=== PATIENT | male | born 1980 | race Caucasian/White ===

== ENCOUNTER 2017-10-17 08:16 | Inpatient (IN) | payer OTHER ==
[~2017-10-17] VITALS: Ht 180.3 cm; Wt 87.5 kg
[2017-10-17 08:24] VITALS: BP 136/100; PULSE 74; RESP 22; TEMP 98.4; O2SAT 99
[2017-10-17 08:29] VITALS: BP_SYST 137; BP_DIAS 64; BP_DIAS 84; PULSE 69; PULSE 74; RESP 18; RESP 20; TEMP 98.4; O2SAT 99
[2017-10-17] MEDS ORDERED: MORPHINE SULFATE 4 MG/ML INJ IV PUSH ONE (08:30)
[2017-10-17] MEDS ORDERED: KETOROLAC TROMETHAMINE 30 MG/ML (IVP) VIAL IVP ONE (08:30)
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
[2017-10-17 10:44] LABS: AUTOMATED NEUTROPHIL # 7.1 TH/MM3 (1.8-7.7); BASOPHIL % 0.3 % (0.0-2.0); EOSINOPHIL # 0.1 TH/MM3 (0-0.4); HEMATOCRIT 39.3 % (39.0-51.0); HEMOGLOBIN 13.6 GM/DL (13.0-17.0); LYMPH % 17.6 % (9.0-44.0); LYMPHOCYTE # 1.7 TH/MM3 (1.0-4.8); MEAN CELL VOLUME 88.7 FL (80.0-100.0); MEAN CORPUSCULAR HEMOGLOBIN 30.7 PG (27.0-34.0); MEAN CORPUSCULAR HGB CONC 34.7 % (32.0-36.0); MEAN PLATELET VOLUME 8.9 FL (7.0-11.0); MONOCYTE # 0.7 TH/MM3 (0-0.9); NEUT % 74.1 % (16.0-70.0); PLATELET COUNT 238 TH/MM3 (150-450); RED BLOOD COUNT 4.43 MIL/MM3 (4.50-5.90); RED CELL DISTRIBUTION WIDTH 13.7 % (11.6-17.2); WHITE BLOOD COUNT 9.6 TH/MM3 (4.0-11.0)
[2017-10-17] MEDS ORDERED: diphenhydrAMINE HCL 25 MG CAP PO PRN (10:45)
[2017-10-17] MEDS ORDERED: SODIUM CHLORIDE 0.9% FLUSH 10 ML FLUSH IV FLUSH PRN (10:45)
[2017-10-17] MEDS ORDERED: diphenhydrAMINE HCL 50 MG/ML VIAL IV PUSH PRN (10:45)
[2017-10-17] MEDS ORDERED: NALOXONE HCL 0.4 MG/ML AMP IV PUSH PRN (10:45)
[2017-10-17 10:55] LABS: PROTHROMBIN TIME - PATIENT 10.4 SEC (9.8-11.6)
[2017-10-17 11:03] LABS: BICARBONATE 29.9 MEQ/L (21.0-32.0); CALCIUM 8.3 MG/DL (8.5-10.1); CREATININE 0.7 MG/DL (0.60-1.30)
[2017-10-17] MEDS ORDERED: MORPHINE SULFATE 4 MG/ML INJ IV PUSH PRN (11:45)
[2017-10-17] MEDS ORDERED: ONDANSETRON ODT 4 MG TAB PO PRN (11:45)
[2017-10-17] MEDS: D5-1/2 NS + KCL 20 MEQ INJ 1,000 ML IV SCH ×2 (12:28→22:21)
[2017-10-17 12:29] VITALS: BP 126/83; PULSE 64; RESP 16; O2SAT 97
[2017-10-17] MEDS: ACETAMINOPHEN/HYDROcodone 325 MG/5 MG TAB PO PRN ×2 (13:20→19:49)
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
[2017-10-17 17:14] VITALS: BP 116/72
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
[2017-10-17] MEDS: SODIUM CHLORIDE 0.9% FLUSH 10 ML FLUSH IV FLUSH SCH (19:21)
[2017-10-17] MEDS ORDERED: CHLORHEXIDINE GLUCONATE 2 % 1 PACK (2 CLOTHS) TOPICAL PRN (19:30)
[2017-10-17] MEDS ORDERED: SODIUM CHLORID 0.9% 500 ML IV PRN (19:30)
[2017-10-17] MEDS ORDERED: LACTATED RINGER'S 1000 ML IV PRN (19:30)
[2017-10-17] MEDS ORDERED: POVIDONE IODINE 5% (ANTISEPSIS KIT) 4 APPLICATIONS EACH NARE PRN (19:30)
[2017-10-17 20:00] VITALS: BP 136/61; PULSE 63; RESP 17; TEMP 97.6; O2SAT 98
[2017-10-18] VITALS (7 sets, daily range): BP systolic 112–137; BP diastolic 56–89; PULSE 60–81; RESP 16–18; TEMP 97.4–98.2; O2SAT 95–98
[2017-10-18] MEDS: ACETAMINOPHEN/HYDROcodone 325 MG/5 MG TAB PO PRN ×2 (01:17→04:54)
[2017-10-18] MEDS: SODIUM CHLORIDE 0.9% FLUSH 10 ML FLUSH IV FLUSH SCH ×2 (09:00→20:53)
[2017-10-18] MEDS ORDERED: GENTAMICIN SULFATE 80 MG/2 ML VIAL ONE (10:33)
[2017-10-18] MEDS ORDERED: MIDAZOLAM HCL 5 MG/5 ML VIAL ONE (10:37)
[2017-10-18] MEDS ORDERED: BUPIVACAINE HCL PF 0.5% 30 ML VIAL ONE (10:37)
[2017-10-18] MEDS ORDERED: DEXAMETHASONE SOD PHOS PF 10 MG/ML VIAL ONE (10:37)
[2017-10-18] MEDS ORDERED: ACETAMINOPHEN 1000 MG/100 ML 100 ML IV ONE (11:00)
[2017-10-18] MEDS ORDERED: ceFAZolin 2 GM PREMIX 50 ML ONE (11:18)
[2017-10-18] MEDS ORDERED: ceFAZolin INJ 1,000 MG VIAL ONE (11:25)
[2017-10-18] MEDS ORDERED: ACETAMINOPHEN/HYDROcodone 325 MG/10 MG TAB PO PRN (12:45)
[2017-10-18] MEDS ORDERED: diphenhydrAMINE HCL 25 MG CAP PO PRN (12:45)
[2017-10-18] MEDS ORDERED: MAGNESIUM HYDROXIDE SUSP 30 ML CUP PO PRN (12:45)
[2017-10-18] MEDS ORDERED: MORPHINE SULFATE 8 MG/ML INJ IV PUSH PRN (12:45)
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
[2017-10-18] MEDS ORDERED: ASPIRIN EC 81 MG TABEC PO ONE (13:00)
[2017-10-18] MEDS: CALCIUM/VITAMIN D 250 MG/125 U TAB PO SCH ×2 (13:00→18:21)
[2017-10-18] MEDS ORDERED: HYDR-3583 PO (13:01)
[2017-10-18] MEDS ORDERED: ECASA81 PO (13:01)
[2017-10-18] MEDS ORDERED: HYDROmorphone HCL PF 0.5 MG/0.5 ML SYRINGE ONE ×2 (13:05→13:18)
[2017-10-18] MEDS ORDERED: Post-op Orders (for Pharmacy) XX ONE (13:07)
[2017-10-18] MEDS ORDERED: MIDAZOLAM HCL 2 MG/2 ML VIAL ONE (13:12)
[2017-10-18] MEDS ORDERED: MORPHINE SULFATE 4 MG/ML INJ ONE (13:12)
[2017-10-18] MEDS ORDERED: ONDANSETRON ODT 4 MG TAB PO PRN (13:15)
[2017-10-18] MEDS: LACTATED RINGER'S 1000 ML INJ 1,000 ML IV SCH ×2 (13:40→22:52)
[2017-10-18] MEDS ORDERED: DO NOT ADM ANY ANTICOAGULANT DRUGS PRN (14:30)
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
--- NOTE | 2017-10-18 15:04 | RADRPT ---
EXAM DATE: 10/18/2017 3:02 PM EDT AGE/SEX: 37 years / Male INDICATIONS: Open reduction internal fixation left patella. CLINICAL DATA: This is the patient's initial encounter. Patient reports that signs and symptoms have been present for 1 day and indicates a pain score of Nonresponsive. MEDICAL/SURGICAL HISTORY: Non-responsive. Non-responsive. COMPARISON: No prior Iron exams available for comparison. CONCLUSION: Fluoroscopic images during placement of screws and cerclage wires along the patella which is near julianna tomic. Prominent degenerative changes of the left knee. Electronically signed by: Jason Guerrero MD 10/18/2017 3:03 PM EDT
[2017-10-18] MEDS: ACETAMINOPHEN/HYDROcodone 325 MG/10 MG TAB PO PRN ×2 (16:43→22:51)
[2017-10-18] MEDS: ASPIRIN EC 81 MG TABEC PO SCH (20:52)
[2017-10-18] MEDS: DOCUSATE SODIUM 50 MG/SENNA 8.6 MG TAB PO SCH (20:52)
[2017-10-19 00:01] VITALS: BP 146/65; PULSE 77; RESP 18; TEMP 97.9; O2SAT 96
[2017-10-19 04:00] VITALS: BP 148/67; PULSE 67; RESP 17; TEMP 98; O2SAT 98
[2017-10-19] MEDS: ACETAMINOPHEN/HYDROcodone 325 MG/10 MG TAB PO PRN (06:35)
[2017-10-19 08:00] VITALS: BP 117/65; PULSE 58; RESP 16; TEMP 97.6; O2SAT 99
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
[2017-10-19] MEDS ORDERED: MULTIVITAMINS/MINERALS THERAPEUTIC TAB PO SCH (09:00)
[2017-10-19] MEDS: SODIUM CHLORIDE 0.9% FLUSH 10 ML FLUSH IV FLUSH SCH (09:00)
[2017-10-19] MEDS: CALCIUM/VITAMIN D 250 MG/125 U TAB PO SCH (09:10)
[2017-10-19] MEDS: DOCUSATE SODIUM 50 MG/SENNA 8.6 MG TAB PO SCH (09:11)
[2017-10-19] MEDS: ASPIRIN EC 81 MG TABEC PO SCH (09:11)
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
== END 2017-10-19 11:17 | disposition home or self-care (01) | DRG 517 ==
LOC: NEPC 08:16 → NEDA 10:36 → OBSVTOIN 10:59 → NEDH 15:03 → N06B 17:16
PROVIDERS: ADMIT Family Medicine; ATTEND Family Medicine
PROC: 0QSF04Z Reposition Left Patella with Internal Fixation Device, Open Approach (ICD-10-PCS; principal; 2017-10-18 11:06)
DX: S82.042A Displaced comminuted fracture of left patella, initial encounter for closed fracture (principal); M17.12 Unilateral primary osteoarthritis, left knee; M25.461 Effusion, right knee; V19.9XXA Pedal cyclist (driver) (passenger) injured in unspecified traffic accident, initial encounter; S80.01XA Contusion of right knee, initial encounter
CPT/HCPCS: 71045; 72170; 73560; 73564; 73721; 76000; 80048; 85025; 85610; 85730; 94150; C1713; E0113; J0131; J0690; J1100; J1170; J1580; J1885; J2250; J2270; J3010; J3480; J7120; L1830